=== PATIENT | female | born 1970 | race American Indian/Alaskan Native ===

== ENCOUNTER 2017-11-08 12:16 | Outpatient (CLI) | payer OTHER ==
--- NOTE | 2017-11-08 14:29 | XRay Report ---
PA and lateral chest: Cough. Routine views are obtained and compared to an exam performed at an outside facility on October 06, 2017. The lungs are generally clear and well inflated. There is a pleural-based density outlined in the base of the medial anterior right lung. The hilar and mediastinal regions are unremarkable. These findings are unchanged from prior exam. Impression: Right pleural-based opacity which may represent normal tissue or a mass. CT scan recommended.
== END 2017-11-08 12:17 | disposition home or self-care (01) ==
LOC: XRAY 12:16
PROVIDERS: ATTEND Family Medicine
DX: R05 Cough (principal)
CPT/HCPCS: 71046

== ENCOUNTER 2017-12-26 07:30 | Outpatient (CLI) | payer OTHER ==
[2017-12-26 08:46] LABS: Blood Urea Nitrogen 10 mg/dL (7-17)
--- NOTE | 2017-12-26 09:30 | Cat Scan Report ---
CT CHEST WITH CONTRAST: HISTORY: Persistent cough, lung nodule. COMPARISON: Chest x-ray dated 11/08/17. TECHNIQUE: Helical CT in 1.25mm intervals following IV contrast. Sagittal and coronal reformatted images. FINDINGS: Thyroid gland: Normal. Tracheobronchial tree: Normal. Esophagus: Normal. Heart: Normal. Pericardium: Normal. Mediastinum: Normal. Lung Alcazar: A solitary 4 mm subpleural nodule is identified in the posterior right lower lobe on image 105 series 3. This nodule is too small to characterize or biopsy percutaneously. I suspect a benign etiology. The remainder of the lung parenchyma is within normal limits. No additional nodule or infiltrate. Pleural Spaces: Normal. Musculoskeletal: The bony structures are intact. No fracture or suspicious bony lesion. There is an approximate 2.9 cm soft tissue density mass in the medial right breast at 3:00. This appears to contain a biopsy clip. IMPRESSION: 2.9 cm right breast mass concerning for primary breast neoplasm. I believe I see a biopsy clip along the superior, anterior border of this mass so this may be a known lesion although I have no work up at this facility. Please correlate with the patient's history. 4 mm subpleural nodule in the posterior right lower lobe as described. Overall benign appearance but too small to characterize. Consider followup in 3-6 months.
== END 2017-12-26 07:31 | disposition home or self-care (01) ==
LOC: CT 07:30
PROVIDERS: ATTEND Specialist
DX: R91.1 Solitary pulmonary nodule (principal); N63.10 Unspecified lump in the right breast, unspecified quadrant; R05 Cough
CPT/HCPCS: 36415; 71260; 82565; 84520; Q9967